=== PATIENT | male | born 1985 | race Caucasian/White ===

== ENCOUNTER 2018-05-13 15:47 | Emergency (ER) | payer OTHER ==
[2018-05-13] MEDS ORDERED: CEPHALEXIN 500 MG CAP PO ONE (16:03)
--- NOTE | 2018-05-13 16:05 | EDPHY ---
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 No paresthesia. No sensory or motor deficits. This was accidental. Occurred shortly prior to arrival. PRIMARY CARE PROVIDER: REVIEW OF SYSTEMS: A ten point review of systems was performed and is negative with the exception of the items mentioned in the HPI PHYSICAL EXAM (Prior to examination, patient consented to physical exam, hands were washed and my usual and customary physical exam procedures followed) 1) GENERAL: Well-developed, well-nourished, alert and oriented. Appears to be in no acute distress. 2) HEAD: Normocephalic 3) HEENT: Pupils equal, round, reactive to light bilaterally. 4) LUNGS: Breathing comfortably. 5) MUSCULOSKELETAL: Left hand: Dorsal 1st metacarpal 3 cm laceration well- demarcated linear. Extensor pollicis longus lacerated. Soft compartments. Normal coloration. 6) SKIN: Laceration to the left hand. Proximal forearm radial aspect 1 cm well -demarcated linear laceration. 7) VASCULAR: pulses and cap refill present are brisk 8) NEUROLOGIC: Radial, ulnar, median nerve function intact with no deficits appreciated on exam DIFFERENTIAL DIAGNOSIS: in no particular order including but not limited to fracture, sprain, compartment syndrome Smoking Status: Never smoked Constitutional: Initial Vital Signs Temperature (C) 36.6 C 05/13/18 15:50 Heart Rate 74 05/13/18 15:50 Respiratory Rate 16 05/13/18 15:50 Blood Pressure 143/67 H 05/13/18 15:50 O2 Sat (%) 97 05/13/18 15:50 O2 Delivery Mode Room Air Allergies/Adverse Reactions: No Known Allergies Allergy (Unverified 05/13/18 15:50) Home Medications: Medication Instructions Recorded Cephalexin [Keflex] 500 mg PO TID 5 Days cap 05/13/18 MDM/Departure - MDM Imaging Results: Imaging Impressions Hand X-Ray 05/13/18 16:49 Impression: Soft tissue injury, with no radiopaque foreign body, or acute osseous abnormality. Images reviewed myself Procedures: Procedure: Laceration repair. I explained the indications, risks and benefits for both laceration repair and anesthetic administration. Verbal consent was obtained from the patient . The laceration on the left 1st metacarpal dorsal aspect was anesthetized using 0.5% bupivicaine with epinephrine . After anesthetic administered the patient was observed for a period of time and had no apparent adverse effects. The wound was cleaned, prepped, draped in normal sterile fashion and explored to its base. No foreign body seen, no foreign bodies palpated. Tendon injury was identified . skin was reapproximated with 6 simple interrupted 5 O Prolene suture. The wound repair was complex. The proximal forearm laceration closed with 3 simple interrupted 5 O Prolene sutures. The procedure was performed by myself. Patient has been informed that scarring will occur, although efforts have been made to minimize this. Procedure: Splint A Velcro thumb spica splint was applied by ER software test technician. After application of the splint I returned and re-examined the patient. The splint was adequately immobilizing the joint and distal to the splint the patient's circulation and sensation were intact. Patient shows no signs of compartment syndrome. Was given orthopedic precautions. Medications Given: Discontinued Medications Cephalexin HCl (Keflex) 500 mg PO EDNOW ONE PRN Reason: Protocol Stop: 05/13/18 16:04 Last Admin: 05/13/18 16:20 Dose: 500 mg ED Course/Re-evaluation: I saw this patient independently based on established practice protocols. Care of patient under supervision of secondary supervising physician Dr Hickman with whom I discussed case. Patient noted to have a laceration to his more than likely extensor pollicis longus. Consultation with on-call hand surgery Dr. Sena England at 4:52 p.m. who agrees with plan of wound closure, splinting, antibiotics, follow up in office tomorrow. My usual and customary wound precautions and instructions and provided. - Depart Disposition: Home, Routine, Self-Care Clinical Impression: Laceration of left hand Qualifiers: Encounter type: initial encounter Foreign body presence: without foreign body Qualified Code(s): S61.412A - Laceration without foreign body of left hand, initial encounter Condition: Good Instructions: Laceration (ED) Additional Instructions: Return to the ER if you develop redness, swelling, discharge, warmth to the wound, red streaks going up your arm, or any other symptoms that concern you. Your forearm sutures need to be removed in 10 days. You may return to the ER in 10 days for removal of these sutures. Prescriptions: Cephalexin [Keflex] 500 mg PO TID 5 Days cap Referrals: Shantal England MD [Medical Doctor] - 1-2 days without fail (Dr. England is a hand surgeon)
[2018-05-13 17:38] VITALS: BP 96/68
== END 2018-05-13 17:37 | disposition home or self-care (01) ==
PROC: 0HQGXZZ Repair Left Hand Skin, External Approach (ICD-10-PCS; principal; 2018-05-13)
DX: S61.412A Laceration without foreign body of left hand, initial encounter (principal); W26.8XXA Contact with other sharp object(s), not elsewhere classified, initial encounter; Y92.9 Unspecified place or not applicable; Y93.9 Activity, unspecified; Y99.9 Unspecified external cause status
CPT/HCPCS: L3807